=== PATIENT | female | born 1975 | race American Indian/Alaskan Native ===

== ENCOUNTER 2016-11-27 13:44 | Emergency (ER) | payer MEDICAID ==
--- NOTE | 2016-11-27 19:47 | Emergency Department Report ---
HPI - General Chief Complaint: Headache Time Seen by Provider: 11/27/16 18:56 - HPI HPI: Patient here for his headache for 3 days and states that she has because blood pressure is elevated. She says it comes on and off. And she had taken over-the -counter pain medicine but it does not work. she reports headache it as a 10 in triage but said that she is not really having a headache at present and that it comes and goes. Patient said that she is out of all her medication and she has [place]'s disease and her automatic screwmaker does not have appointment for 2 weeks and said she was sent to emergency room for refills on medications. Patient said that she was arrested in her medication because her insurance had lapsed for 2 months then medication that she got filled in August and not taking i as instructed because she wanted to last until her insurance reactivated. She reports she is here in the emergency room to get her medication refilled. Patient called and spoke with them and all her medications were verified to be amlodipine 10 mg daily HCTZ 25 mg daily lisinopril 40 mg daily loratadine 10 mg daily aspirin 81 mg daily and Hydrocotisone 15 mg every morning 5 mg at noon and 12.5 mg in evening. Patient denies any dizziness or blurred vision. DeniesAny nausea or vomiting. Denies any abdominal pain, back pain or urinary burning frequency or urgency. She said because of her [place]'s disease she tends to get hyper glycemic suggested to her blood work was checked on a regular basis. Her primary care doctor is Dr. Yuan and her automatic screwmaker is Dr. Aranda. ED Past Medical Hx - Past Medical History Previous Medical History?: Yes Hx Diabetes: Yes Hx Arthritis: Yes Additional medical history: [place], polymyositis - Surgical History Past Surgical History?: Yes Additional Surgical History: "TUBAL" "HERNIA REPAIR" "GALLBLADDER" - Family History Family history: no significant - Social History Smoking Status: Never Smoker Substance Use Type: Prescribed - Medications Home Medications: Home Medications Medication Instructions Recorded Confirmed Last Taken Type Ibuprofen [Motrin] 800 mg PO Q8H PRN #30 tablet 11/07/14 Unknown Rx Doxycycline Monohydrate 100 mg PO BID #20 capsule 12/01/14 Unknown Rx [Doxycycline Monohydrate CAP] metroNIDAZOLE [Flagyl TAB] 500 mg PO BID #20 tablet 12/01/14 Unknown Rx Oxycodone HCl/Acetaminophen 1 each PO Q6HR PRN #10 tablet 01/27/15 Unknown Rx [Percocet 10/325 mg] Acetaminophen/Codeine [Tylenol #3] 1 tab PO Q6H PRN #10 tab 02/17/15 Unknown Rx Ibuprofen [Motrin 800 MG tab] 800 mg PO Q8HR PRN #30 tablet 02/17/15 Unknown Rx Sulfamethoxazole/Trimethoprim 1 each PO BID #10 tablet 02/17/15 Unknown Rx [Bactrim DS TAB] Ibuprofen [Motrin] 800 mg PO Q8HR PRN #45 tablet 05/07/15 Unknown Rx Ondansetron [Zofran ODT TAB] 8 mg PO Q12HR #6 tab.rapdis 05/07/15 Unknown Rx Aspirin [Adult Low Dose Aspirin EC] 81 mg PO QDAY #30 tablet.dr 11/27/16 Unknown Rx Hydrochlorothiazide [HCTZ] 25 mg PO QDAY #30 tablet 11/27/16 Unknown Rx Hydrocortisone [Cortef TAB] 5 mg PO DAILY #150 tablet 11/27/16 Unknown Rx Lisinopril [Zestril TAB] 40 mg PO QDAY #30 tablet 11/27/16 Unknown Rx Loratadine [Claritin RAPDIS] 10 mg PO QDAY #30 tab.rapdis 11/27/16 Unknown Rx amLODIPine [Norvasc] 10 mg PO DAILY #30 tab 11/27/16 Unknown Rx ED Review of Systems ROS: Stated complaint: HEADACHE Other details as noted in HPI Comment: All other systems reviewed and negative Constitutional: denies: chills, fever, weakness Eyes: denies: eye pain, eye discharge, vision change ENT: denies: ear pain, throat pain, congestion Respiratory: no symptoms reported Cardiovascular: denies: chest pain, palpitations, edema, syncope Gastrointestinal: denies: abdominal pain, nausea, vomiting, diarrhea, constipation Genitourinary: denies: urgency, dysuria, frequency, hematuria, discharge Musculoskeletal: denies: back pain, arthralgia, myalgia Skin: denies: rash Neurological: headache. denies: weakness, numbness, paresthesias, confusion, abnormal gait, vertigo Physical Exam - Physical Exam Vital Signs: Vital Signs 11/27/16 14:10 Temperature 98.6 F Pulse Rate 90 Respiratory 18 Rate Blood Pressure 146/95 O2 Sat by Pulse 100 Oximetry General: This is a 41-year-old female well-nourished well-developed in no acute distress. Physical Exam: Head: Normocephalic atraumatic Mouth: Moist, no pharyngeal exudate or erythema. Uvula is midline and oral airway is patent. No facial swelling. No peritonsillar abscesses. Nose:Nl mucosa. Maxillary and frontal sinuses nontender to palpate Neck: Supple, no C-spine tenderness, no tracheal deviation. Nontender to palpate. no adenopathy Abdomen: Soft, nontender to palpate in all quadrants, normal bowel sounds in all quadrant and negative CVA tenderness bilaterally. Back: No vertebral or paraspinal tenderness. No saddle anesthesia. Patient able to ambulate without any difficulties. Negative SLR bilaterally. Neurological: GCS of 15, alert and oriented 3. Speech is clear and fluid. Normal gait. No motor or sensory deficit. Normal reflexes. No facial drooping. No pronator drift and negative Romberg. Eyes: Bilateral pupils equal and reactive to light, bilateral EOM intact. Bilateral sclera and conjunctiva without injection. Normal accommodation. No nystagmus Lungs: Clear to auscultate bilaterally no rhonchi wheezes or rales. Normal work of breathing extremity; No CCE. +2 pulses. No neurovascular compromise Cardiovascular: S1-S2, regular rate rhythm. No murmurs. Skin: clean Dry and intact no rash no lesions Psych: Normal mood and behavior ED Course Vital Signs 11/27/16 14:10 Temperature 98.6 F Pulse Rate 90 Respiratory 18 Rate Blood Pressure 146/95 O2 Sat by Pulse 100 Oximetry - Reevaluation(s) Reevaluation #1: 11/27/16 21:43 Motrin 800 mg in the emergency room for headache. ED Medical Decision Making - Lab Data Result diagrams: 11/27/16 19:57 11/27/16 19:57 Lab Results 11/27/16 11/27/16 11/27/16 Range/Units 19:57 19:57 20:03 WBC 9.4 (4.5-11.0) K/mm3 RBC 4.59 (3.65-5.03) M/mm3 Hgb 14.3 (10.1-14.3) gm/dl Hct 42.4 (30.3-42.9) % MCV 92 (79-97) fl MCH 31 (28-32) pg MCHC 34 (30-34) % RDW 12.2 L (13.2-15.2) % Plt Count 290 (140-440) K/mm3 Lymph % (Auto) 40.2 H (13.4-35.0) % [place] % (Auto) 9.6 H (0.0-7.3) % Eos % (Auto) 2.3 (0.0-4.3) % Baso % (Auto) 0.5 (0.0-1.8) % Lymph # 3.8 (1.2-5.4) K/mm3 [place] # 0.9 H (0.0-0.8) K/mm3 Eos # 0.2 (0.0-0.4) K/mm3 Baso # 0.0 (0.0-0.1) K/mm3 Seg Neutrophils % 47.4 (40.0-70.0) % Seg Neutrophils # 4.5 (1.8-7.7) K/mm3 Carbon Dioxide 25 (22-30) mmol/L BUN 6 L (7-17) mg/dL Creatinine 0.7 (0.7-1.2) mg/dL Estimated GFR > 60 ml/min BUN/Creatinine Ratio 8.57 % Glucose 83 (65-100) mg/dL Calcium 9.3 (8.4-10.2) mg/dL Total Bilirubin 0.70 (0.1-1.2) mg/dL Direct Bilirubin < 0.2 (0-0.2) mg/dL Indirect Bilirubin 0.5 mg/dL AST 18 (5-40) units/L ALT 13 (7-56) units/L Alkaline Phosphatase 66 (35-129) units/L Total Protein 8.1 (6.3-8.2) g/dL Albumin 4.5 (3.9-5) g/dL Albumin/Globulin Ratio 1.3 % HCG, Qual Negative (Negative) Urine Color (Yellow) Urine Turbidity (Clear) Urine pH (5.0-7.0) Ur Specific [place] (1.003-1.030) Urine Protein (Negative) mg/dL Urine Glucose (UA) (Negative) mg/dL Urine Ketones (Negative) mg/dL Urine Blood (Negative) Urine Nitrite (Negative) Urine Bilirubin (Negative) Urine Urobilinogen (<2.0) mg/dL Ur Leukocyte Esterase (Negative) Urine WBC (Auto) (0.0-6.0) /HPF Urine RBC (Auto) (0.0-6.0) /HPF U Epithel Cells (Auto) (0-13.0) /HPF Urine Mucus /HPF 11/27/16 Range/Units 21:00 WBC (4.5-11.0) K/mm3 RBC (3.65-5.03) M/mm3 Hgb (10.1-14.3) gm/dl Hct (30.3-42.9) % MCV (79-97) fl MCH (28-32) pg MCHC (30-34) % RDW (13.2-15.2) % Plt Count (140-440) K/mm3 Lymph % (Auto) (13.4-35.0) % [place] % (Auto) (0.0-7.3) % Eos % (Auto) (0.0-4.3) % Baso % (Auto) (0.0-1.8) % Lymph # (1.2-5.4) K/mm3 [place] # (0.0-0.8) K/mm3 Eos # (0.0-0.4) K/mm3 Baso # (0.0-0.1) K/mm3 Seg Neutrophils % (40.0-70.0) % Seg Neutrophils # (1.8-7.7) K/mm3 Carbon Dioxide (22-30) mmol/L BUN (7-17) mg/dL Creatinine (0.7-1.2) mg/dL Estimated GFR ml/min BUN/Creatinine Ratio % Glucose (65-100) mg/dL Calcium (8.4-10.2) mg/dL Total Bilirubin (0.1-1.2) mg/dL Direct Bilirubin (0-0.2) mg/dL Indirect Bilirubin mg/dL AST (5-40) units/L ALT (7-56) units/L Alkaline Phosphatase (35-129) units/L Total Protein (6.3-8.2) g/dL Albumin (3.9-5) g/dL Albumin/Globulin Ratio % HCG, Qual (Negative) Urine Color Straw (Yellow) Urine Turbidity Clear (Clear) Urine pH 7.0 (5.0-7.0) Ur Specific [place] 1.009 (1.003-1.030) Urine Protein <15 mg/dl (Negative) mg/dL Urine Glucose (UA) Neg (Negative) mg/dL Urine Ketones Tr (Negative) mg/dL Urine Blood Mod (Negative) Urine Nitrite Neg (Negative) Urine Bilirubin Neg (Negative) Urine Urobilinogen < 2.0 (<2.0) mg/dL Ur Leukocyte Esterase Neg (Negative) Urine WBC (Auto) < 1.0 (0.0-6.0) /HPF Urine RBC (Auto) 4.0 (0.0-6.0) /HPF U Epithel Cells (Auto) 1.0 (0-13.0) /HPF Urine Mucus Few /HPF Dictated 2 metastatic sodium potassium chloride and anion gap is not on regular lab formula. Lab dictated that this patient's sodium is 141, potassium 3.7 chloride 101 and anion gap of 19. Should also monitor him on the blood in her urine and she said that something that she has in her urinalysis at times. Patient does not have any symptoms of urinary tract infectionshe having any abdominal or flank pain. She also has trace ketone otherwise urine is normal and test is negative. - Medical Decision Making ED course: I collaborated with Dr. Coley on patient presentation, clinical findings and complaints along with her request. Lab work was drawn and no significant findings. Moderate amount of blood in her urine which is something she says is not new. She does not get her menses anymore since she has [place]' s disease per patient. HCG is negative. Not having any symptoms of kidney stones and says this flank pain, edilia blood in her urine or abdominal pain. Her, chills or nausea or vomiting. Since patient labs were within normal limits with no significant findings and her medications were verified, It was agreed upon that the patient medication be refilled and she will need to follow up with her PCP Dr. Yuan and tried to get automatic screwmaker appointment for earlier time via PCP. Says her insurance is reactivated and she will call Dr. Yuan in the morning. This was discussed with patient in details regarding her lab work and results and need follow-up with primary care physician and her automatic screwmaker and she voiced understanding of necessity. Patient discharged home in stable condition with prescription for hydrocortisone tablets, amlodipine, HCTZ, lisinopril, loratadine and aspirin. She was also given Motrin 800 mg for headache and her headache has resolved. Critical care attestation.: If time is entered above; I have spent that time in minutes in the direct care of this critically ill patient, excluding procedure time. ED Disposition Clinical Impression: Encounter for medication refill, [place] disease, Blood in urine Headache Qualifiers: Headache type: unspecified Headache chronicity pattern: acute headache Intractability: not intractable Qualified Code(s): R51 - Headache Disposition: DC- TO HOME OR SELFCARE Is pt being admited?: No Does the pt Need Aspirin: No Condition: Stable Instructions: F[place]z Disease (ED), Acute Headache (ED), Chronic Hypertension ( ED) Additional Instructions: Follow-up with your primary care doctor Dr. Yuan call tomorrow to schedule appointment to see her in Friday. Please call your automatic screwmaker to schedule an appointment. Take Medication as prescribed. Increase your fluid intake as urine had trace ketone and is a sign of mild dehydration. You will need to have a repeat urinalysis done by the primary care doctor as he had moderate amount of blood. which is microscopic and urine. Prescriptions: amLODIPine [Norvasc] 10 mg PO DAILY #30 tab Aspirin [Adult Low Dose Aspirin EC] 81 mg PO QDAY #30 tablet. Hydrochlorothiazide [HCTZ] 25 mg PO QDAY #30 tablet Hydrocortisone [Cortef TAB] 5 mg PO DAILY #150 tablet Lisinopril [Zestril TAB] 40 mg PO QDAY #30 tablet Loratadine [Claritin RAPDIS] 10 mg PO QDAY #30 tab.rapdis Referrals: PRIMARY CARE, [Primary Care Provider] - 12/02/16 Your, Provider Network Mgr [Other] - 12/02/16 Forms: Accompanied Note, Work/School Release Form(ED)
[2016-11-27 20:14] LABS: Basophils % (Auto) 0.5 % (0.0-1.8); Eosinophils % (Auto) 2.3 % (0.0-4.3); Hematocrit 42.4 % (30.3-42.9); Hemoglobin 14.3 gm/dl (10.1-14.3); Mean Corpuscular HGB Conc 34 % (30-34); Mean Corpuscular Hemoglobin 31 pg (28-32); Mean Corpuscular Volume 92 fl (79-97); Platelet Count 290 K/mm3 (140-440); Red Blood Count 4.59 M/mm3 (3.65-5.03); Red Cell Distribution Width 12.2 % (13.2-15.2); White Blood Count 9.4 K/mm3 (4.5-11.0)
[2016-11-27 20:28] LABS: Alanine Aminotransferase 13 units/L (7-56); Albumin 4.5 g/dL (3.9-5); Albumin/Globulin Ratio 1.3 %; Alkaline Phosphatase 66 units/L (35-129); Anion Gap 19 mmol/L; BUN/Creatinine Ratio 8.57; Blood Urea Nitrogen 6 mg/dL (7-17); Calcium 9.3 mg/dL (8.4-10.2); Carbon Dioxide 25 mmol/L (22-30); Chloride 101.2 mmol/L (98-107); Glucose 83 mg/dL (65-100); Potassium 3.7 mmol/L (3.6-5.0); Sodium 141 mmol/L (137-145); Total Protein 8.1 g/dL (6.3-8.2)
[2016-11-27 20:30] LABS: Bilirubin,Direct < 0.2 mg/dL (0-0.2); Bilirubin,Indirect 0.5 mg/dL
[2016-11-27 21:15] LABS: Bilirubin,Urine NEG (Negative); Blood,Urine MOD (Negative); Ketones,Urine TR mg/dL (Negative); Leukocyte Esterase,Urine NEG (Negative); Mucus,Urine FEW /HPF; Nitrite,Urine NEG (Negative); Protein,Urine <15 mg/dL mg/dL (Negative); Urobilinogen,Urine < 2.0 mg/dL (<2.0); WBC,Urine < 1.0 /HPF (0.0-6.0)
[2016-11-27] MEDS ORDERED: MOTRIN PO ONE (21:31)
[2016-11-27 22:18] VITALS: BP 140/92
== END 2016-11-27 22:18 | disposition home or self-care (01) ==
LOC: ED 13:44
DX: Z76.0 Encounter for issue of repeat prescription (principal); E27.1 Primary adrenocortical insufficiency; R31.9 Hematuria, unspecified; E11.9 Type 2 diabetes mellitus without complications; M19.90 Unspecified osteoarthritis, unspecified site
CPT/HCPCS: 36415; 80048; 80074; 81001; 84703; 85025; 99283

== ENCOUNTER 2018-02-02 10:41 | Outpatient (CLI) | payer MEDICAID ==
--- NOTE | 2018-02-02 12:03 | XRay Report ---
ROUTINE CHEST, TWO VIEWS: HISTORY: Hypertension. The trachea, heart, mediastinal contour, lung mitchell and bony thorax are unremarkable. IMPRESSION: Unremarkable chest x-ray. No change since 03/27/16.
== END 2018-02-02 10:42 | disposition home or self-care (01) ==
LOC: XRAY 10:41
PROVIDERS: ATTEND Internal Medicine
DX: I10 Essential (primary) hypertension (principal); M19.90 Unspecified osteoarthritis, unspecified site; Z88.0 Allergy status to penicillin; Z88.6 Allergy status to analgesic agent; Z91.048 Other nonmedicinal substance allergy status
CPT/HCPCS: 71046; 93005; 93010